=== PATIENT | female | born 1930 | race Caucasian/White ===

== ENCOUNTER → 2017-01-02 | Outpatient (CLI) | payer MEDICARE ==
[2015-06-07 13:52] VITALS: BP 122/72
[~2017-01-02] MED LIST: ASPI-482 PO; BENA1TAB6 PO; CALC-44 PO; DILT120C80 PO; DILT180C2 PO; DONE10TA7 PO; FISH1CAP PO; IOHEXOL 180 MG/ML 10 ML VIAL. ONE; RIVA10TA PO; SIMV40TA3 PO; VITA1TAB19 PO; WARF1TAB7 PO; methylPREDNISolone ACETATE 40 MG/ML VIAL. ONE; methylPREDNISolone ACETATE 80 MG/ML VIAL. ONE
--- NOTE | 2017-01-03 04:43 | PAIN ---
DATE OF SERVICE: 01/02/2017 DIAGNOSES: Lumbar radiculopathy with lumbar degenerative disk disease and lumbar spinal stenosis. HISTORY OF PRESENT ILLNESS: The patient is an 86-year-old female who returns for followup status post lumbar epidural steroid injection x 1 on 02/09/2016. The patient did very well with this with near 100% improvement until about the past 2 weeks ago, she fell landing on her right side at home. Reports increased pain across the low back and radiating to the bilateral lower extremities, worse on the right now than the left, was previously the left was more painful. The patient reports it is a 6 on a scale of 10 at its worst, is a 5 at its least, and averaged 5 most times. The patient reports no new motor or sensory deficits, no new bowel or bladder incontinence, but still significant pain across the low back radiating to the right lower extremity, mostly in the lateral and anterior aspect of the thigh, posterior thigh, but some in the hip and groin as well on the right side. The patient reports it is constant, aching, shooting and alternating with dull and sharp sensations, again worse on the right side. The patient reports no new motor or sensory deficits, no new bowel or bladder incontinence or other complaints. PAST MEDICAL HISTORY: Significant for psoriasis, hysterectomy, and atrial fibrillation. CURRENT MEDICATIONS: Include donepezil, Cardizem daily, baby aspirin, benazepril, simvastatin, calcium, and fish oil. ALLERGIES: THE PATIENT IS ALLERGIC TO VITAMIN K. FAMILY HISTORY: Significant for cancer. SOCIAL HISTORY: The patient does not smoke, does not drink alcohol. Lives in [place], [place], and is currently retired and lives on her own. PHYSICAL EXAMINATION: VITAL SIGNS: Today, the patient's blood pressure 120/58, pulse is 56, respirations 20, temperature is the 97.7 degrees Fahrenheit, weight is 109 pounds. GENERAL: The patient is awake, alert, oriented, appropriate, very pleasant demeanor. The patient is accompanied by her daughter. HEENT: Head shows the patient is wearing eyeglasses. Extraocular movements are intact and symmetrical. Otherwise is normocephalic and atraumatic. Oral cavity, mucous membranes are moist and pink. Dentition is intact. NECK: Shows anterior throat supple without palpable lymphadenopathy noted. Swallow reflex is symmetrical. Neck shows full rotational motion of cervical spine, both laterally as well as extension and flexion. CHEST: Shows normal with inspection. Breath sounds clear to auscultation bilaterally. HEART: Shows S1 and S2 clear. No murmurs auscultated. ABDOMEN: Soft, nontender, nondistended. No palpable organomegaly is noted. No rebound or guarding demonstrated. BACK: Shows spine grossly midline. Slight exaggeration of thoracic kyphosis and some flattening of lumbar lordotic curvature. Paraspinous musculature is symmetrical throughout the thoracic and lumbar distribution on inspection. With palpation shows some moderate tenderness, but only moderately diffusely in the mid and low lumbar distribution, it is firm with normal muscle girth. The patient shows good rotation of motion both as well as extension and flexion of lumbar spine without difficulty. No tenderness over the sacrum or sacroiliac regions over the spinous processes. EXTREMITIES: Lower extremities show deep tendon reflexes at 1+ in the patellar and tendo calcaneus tendons are equal. Motor exam is strong with approximately 4 on a scale of 5, but symmetrical with dorsiflexion, extension, quadriceps and hamstring flexion without deficit. Peripheral pulses are 1+ posterior tibial and dorsalis pedis pulses. No peripheral edema is noted. No clubbing, no cyanosis. Lower extremities are warm and dry to touch, equal in color and appearance. Straight leg raise is noted to be negative for reproduction of any radicular symptoms bilaterally. Gaenslen's maneuver is markedly tender on the right, mildly positive, but Kalia's maneuver is also mildly positive on the right, but very minimal with external hip rotation. Left side is negative with both. The patient is able to stand, has some difficulty with balance. She is walking with a shuffling gait, but reports she has a cane and walkers at home, but did not bring in them with her, she does not like to use them. Options were discussed with the patient and the patient's old chart was reviewed as her current medication regimen and updated. Review of systems updated today as well as noted. We will proceed with a lumbar epidural steroid injection. We discussed the procedure using description as well as anatomical models. Risks were again discussed including, but not limited to bleeding, infection, possibility of epidural hematoma and subsequent neurological compromise, dural puncture, headaches, spinal cord and/or nerve damage, side effects of steroid medication, poor results regarding pain control. The patient understands and wishes to proceed. The patient will return to clinic in approximately 2 weeks for followup. She was counseled on return appointment, activity level and side effects to be aware of. DIAGNOSIS: Lumbar radiculopathy with lumbar spinal stenosis, lumbar degenerative disk disease. PROCEDURE: Lumbar epidural steroid injection in translaminar approach at the L4-L5 level using C-arm fluoroscopic guidance under sterile prep and drape using local anesthetic. Medication injected is total of 120 mg of Depo-Medrol plus 10 mL of preservative-free normal saline and 2 mL of Isovue for contrast. Condition on discharge is stable. The patient tolerated the procedure, had no complications. BRYN LEES MD DR: ALEX/ming JOB#: [id number] / [id number]
== END | disposition home or self-care (01) ==
LOC: PNCL 09:24
PROVIDERS: ATTEND Anesthesiology
DX: M51.16 Intervertebral disc disorders with radiculopathy, lumbar region (principal); M48.06 Spinal stenosis, lumbar region; L40.9 Psoriasis, unspecified; Z90.710 Acquired absence of both cervix and uterus; I48.91 Unspecified atrial fibrillation; Z79.82 Long term (current) use of aspirin; Z91.048 Other nonmedicinal substance allergy status
CPT/HCPCS: 62323; J1030; J1040

== ENCOUNTER → 2017-03-22 | Outpatient (CLI) | payer MEDICARE ==
[2015-06-07 13:52] VITALS: BP 122/72
[~2017-03-22] MED LIST changes: -IOHEXOL 180 MG/ML 10 ML VIAL. ONE; -methylPREDNISolone ACETATE 40 MG/ML VIAL. ONE; -methylPREDNISolone ACETATE 80 MG/ML VIAL. ONE
--- NOTE | 2017-03-22 14:14 | RAD ---
DATE: 03/22/2017 EXAM: MAMMO FACUNDO SCREENING BILATERAL HISTORY: Screening COMPARISON: One year earlier FINDINGS: Breast Density: SCATTERED The breast parenchyma shows scattered fibroglandular densities. Breast parenchyma level B. There has not been a significant change when compared to the previous exam. IMPRESSION: Benign findings BI-RADS CATEGORY: 2 BENIGN FINDING(S) RECOMMENDED FOLLOW-UP: 12M 12 MONTH FOLLOW-UP PQRS compliance statement: Patient information was entered into a reminder system with a target due date 03/22/2018 for the next mammogram. Mammography is a sensitive method for finding small breast cancers, but it does not detect them all and is not a substitute for careful clinical examination. A negative mammogram does not negate a clinically suspicious finding and should not result in delay in biopsying a clinically suspicious abnormality. "Our facility is accredited by the [employer] Mammography Program."
== END | disposition home or self-care (01) ==
LOC: KCIC MAMMO 12:47
PROVIDERS: ATTEND Family Medicine
DX: Z12.31 Encounter for screening mammogram for malignant neoplasm of breast (principal)
CPT/HCPCS: 77063; G0202; 77067

== ENCOUNTER 2018-07-04 12:55 | Emergency (ER) | payer MEDICARE ==
[~2018-07-04] VITALS: Ht 160 cm; Wt 49.9 kg
[~2018-07-04 12:55] MED LIST changes: -DILT120C80 PO; +DILT120C85 PO; +WARF1TAB69 PO; -WARF1TAB7 PO
[2018-07-04] MEDS ORDERED: ACETAMINOPHEN 325 MG TABLET. PO ONE (13:45)
--- NOTE | 2018-07-04 14:27 | RAD ---
Examination: 2 views of the right hip with frontal view the pelvis, 3 views of the right knee and 3 views of the right foot HISTORY: History of trauma, bruising COMPARISON: Pelvis radiograph from 12/30/2015 FINDINGS: The bilateral femoral heads within the acetabula. Moderate joint space loss identified in the bilateral hip joints. There is no acute fracture identified.Moderate to severe degenerative changes lower lumbar spine. The alignment of the knee joint grossly appears unremarkable.Moderate to severe joint space loss identified in the medial, lateral compartment femoral compartments of the knee joint. Large posterior osteophyte formation identified in the distal femur.. Small knee joint effusion. Trace chondrocalcinosis. The alignment of the tarsal bones, tarsometatarsal joints, metatarsophalangeal joints, interphalangeal grossly appears unremarkable. Probable old fracture of the distal fourth metatarsal identified Moderate size osteophyte formation identified in the medial aspect of the navicular bone. Mild hallux valgus. No obvious acute fracture identified. Moderate size inferior calcaneal enthesophyte identified. IMPRESSION: 1. 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 2. Moderate degenerative changes in the foot. Probable old healed fracture of the distal fourth metatarsal. 3. Moderate degenerative changes bilateral hip joints. Electronically signed by: Robbi Taylor MD (07/04/2018 2:23 PM) [place] [id number]
[2018-07-04 15:16] VITALS: BP 98/54
--- NOTE | 2018-07-04 15:20 | RAD ---
Right lower extremity venous doppler ultrasound Indication: Right leg swelling. Technique: Color Doppler, grayscale, and spectral waveform analysis is used to evaluate the right femoral and popliteal veins. Findings: No evidence of deep venous thrombosis. Normal response to augmentation, normal compressibility and normal phasicity is demonstrated. Visualized calf veins are patent. Impression: Negative for deep venous thrombosis Electronically signed by: Parth Thorpe MD (07/04/2018 3:15 PM) [facility]
--- NOTE | 2018-07-04 16:43 | PHYS DOC ---
Past Medical History Past Medical History: A-Fib, High Cholesterol, Hypertension Past Surgical History: Hysterectomy Alcohol Use: None Drug Use: None Adult General Chief Complaint Chief Complaint: LOWER EXT PAIN HPI HPI Patient is a 88 year old female was presenting with chief complaint of leg pain. The patient may have had an unwitnessed fall. Family is not sure but she lives alone and she has been limping over the last couple of days. Today just wanted to get x-rays of related to make sure nothing is broken they noticed a bruise on her foot and just around her knee as well patient has no complaints she does have history of dementia so history is somewhat limited. I do not think she hit her head patient does not have any neck pain or back pain. Review of Systems Review of Systems Limited by dementia Current Medications Current Medications Current Medications Medications (Trade) Dose Ordered Sig/Tc Start Time Stop Time Status Last Admin Dose Admin Acetaminophen (Tylenol) 650 mg 1X ONCE 07/04/18 13:45 07/04/18 13:46 DC 07/04/18 14:16 650 MG Allergies Allergies Allergies Coded Allergies Type Severity Reaction Last Updated Verified vitamin K2 Allergy Intermediate hives 07/04/18 Yes Physical Exam Physical Exam Constitutional: Well developed, well nourished, no acute distress, non-toxic appearance. [] HENT: Normocephalic, atraumatic, bilateral external ears normal, oropharynx moist, no oral exudates, nose normal. [] Eyes: PERRLA, EOMI, conjunctiva normal, no discharge. [] Neck: Normal range of motion, no tenderness, supple, no stridor. [] Cardiovascular:Heart rate regular rhythm, no murmur [] Lungs & Thorax: Bilateral breath sounds clear to auscultation [] Abdomen: Bowel sounds normal, soft, no tenderness, no masses, no pulsatile masses. [] Skin: Warm, dry, no erythema, no rash. [] Back: No tenderness, no CVA tenderness. [] Extremities: Ecchymosis noted to the lateral aspect of the right foot just proximal to the toes. The mid foot appears nontender pulses are intact ankle is nontender there is scattered ecchymosis over the anterior mark and also medially as well. Mild tenderness in the poplitearl area full rom of hip Neurologic: Alert and oriented X 2, normal motor function, normal sensory function, no focal deficits noted. [] Psychologic: Affect normal, judgement normal, mood normal. [] Current Patient Data Vital Signs Vital Signs Date Time Temp Pulse Resp B/P (MAP) Pulse Ox O2 Delivery O2 Flow Rate FiO2 07/04/18 15:16 64 20 98/54 (69) 98 Room Air 07/04/18 13:10 97.8 97.8 EKG EKG [] Radiology/Procedures Radiology/Procedures [] Course & Med Decision Making Course & Med Decision Making Pertinent Labs and Imaging studies reviewed. (See chart for details) [] A 8-year-old female who presents with ecchymosis over her right foot and some difficulty with bearing weight over the last couple of days possible unwitnessed fall x-ray imaging was reviewed in no acute fracture there is an old fracture noted to the right foot but this is not acute. Ultrasound was negative for DVT patient was given Tylenol with some improvement in the emergency room counseled on ice rest ice the extremity elevated gradual return to activity return as needed if not improving. Dragon Disclaimer Dragon Disclaimer This electronic medical record was generated, in whole or in part, using a voice recognition dictation system. Departure Departure Impression: Primary Impression: Ecchymosis Disposition: 01 HOME, SELF-CARE Condition: STABLE Patient Instructions: Contusion, [id number] LISSET ALEJANDRE MD Jul 04, 2018 16:43
== END 2018-07-04 15:58 | disposition home or self-care (01) ==
LOC: ER 12:55
DX: S90.31XA Contusion of right foot, initial encounter (principal); S80.11XA Contusion of right lower leg, initial encounter; M20.11 Hallux valgus (acquired), right foot; M25.774 Osteophyte, right foot; M25.461 Effusion, right knee; M11.261 Other chondrocalcinosis, right knee; F03.90 Unspecified dementia, unspecified severity, without behavioral disturbance, psychotic disturbance, mood disturbance, and anxiety; E78.00 Pure hypercholesterolemia, unspecified; I48.91 Unspecified atrial fibrillation; I10 Essential (primary) hypertension; Z90.710 Acquired absence of both cervix and uterus; Z88.8 Allergy status to other drugs, medicaments and biological substances; W18.39XA Other fall on same level, initial encounter; Y93.89 Activity, other specified; Y92.89 Other specified places as the place of occurrence of the external cause; Y99.8 Other external cause status
CPT/HCPCS: 73502; 73562; 73630; 93971; 99284-25